=== PATIENT | female | born 1995 | race Caucasian/White ===

== ENCOUNTER 2017-05-20 16:52 | Emergency (ER) | payer MEDICAID ==
[~2017-05-20] VITALS: Ht 167.6 cm; Wt 57.0 kg
[2017-05-20 21:00] VITALS: BP 110/69
== END 2017-05-20 21:00 | disposition home or self-care (01) ==
LOC: ER 17:38
DX: S19.80XA Other specified injuries of unspecified part of neck, initial encounter (principal); Z88.0 Allergy status to penicillin; V23.4XXA Motorcycle driver injured in collision with car, pick-up truck or van in traffic accident, initial encounter; Y93.89 Activity, other specified; Y92.488 Other paved roadways as the place of occurrence of the external cause
CPT/HCPCS: 72125; 81025; 99284; Z7610

== ENCOUNTER 2017-06-06 08:18 | Emergency (ER) | payer MEDICAID, OTHER ==
[~2017-06-06] VITALS: Ht 167.6 cm; Wt 59.0 kg
[2017-06-06] MEDS ORDERED: IBUPROFEN 600MG TABLET PO ONE (09:00)
[2017-06-06] MEDS ORDERED: BACITRACIN ZINC OINT UDPKT TOP ONE (09:00)
[2017-06-06 10:00] VITALS: BP 112/66
== END 2017-06-06 10:00 | disposition home or self-care (01) ==
LOC: ER 08:52
DX: L03.116 Cellulitis of left lower limb (principal); Z88.0 Allergy status to penicillin; Y93.55 Activity, bike riding
CPT/HCPCS: 81025; 99283; X7700; Z7610

== ENCOUNTER 2017-06-11 08:33 | Emergency (ER) | payer MEDICAID ==
[~2017-06-11] VITALS: Ht 167.6 cm; Wt 127.0 kg
[2017-06-11 09:00] VITALS: BP 109/74
[2017-06-11] MEDS ORDERED: BACITRACIN ZINC OINT UDPKT TOP ONE (11:00)
== END 2017-06-11 11:56 | disposition home or self-care (01) ==
LOC: ER 08:39
DX: Z48.00 Encounter for change or removal of nonsurgical wound dressing (principal); Z88.0 Allergy status to penicillin
CPT/HCPCS: 99283; X7700

== ENCOUNTER 2017-10-17 10:24 | Emergency (ER) | payer MEDICAID, OTHER ==
[~2017-10-17] VITALS: Ht 167.6 cm; Wt 59.0 kg
[2017-10-17 16:25] VITALS: BP 110/63
[2017-10-17] MEDS ORDERED: IBUPROFEN 600MG TABLET PO STA (17:03)
[2017-10-17] MEDS ORDERED: BACITRACIN ZINC OINT UDPKT TOP ONE (19:15)
== END 2017-10-17 20:14 | disposition home or self-care (01) ==
LOC: ER 12:26
DX: S50.11XA Contusion of right forearm, initial encounter (principal); S80.212A Abrasion, left knee, initial encounter; S80.211A Abrasion, right knee, initial encounter; M54.2 Cervicalgia; Z88.0 Allergy status to penicillin; V42.9XXA Unspecified car occupant injured in collision with two- or three-wheeled motor vehicle in traffic accident, initial encounter; Y93.89 Activity, other specified; Y92.89 Other specified places as the place of occurrence of the external cause; Y99.8 Other external cause status
CPT/HCPCS: 81025; 99283